=== PATIENT | male | born 1985 | race Caucasian/White ===

== ENCOUNTER 2024-09-02 08:07 | Emergency (ER) | payer OTHER ==
[~2024-09-02] VITALS: Ht 170.2 cm; Wt 86.2 kg
[2024-09-02 08:07] VITALS: BP 133/83; PULSE 62; RESP 16; TEMP 97.9; O2SAT 98
[2024-09-02 08:52] LABS: INFLUENZA VIRUS A ANTIGEN NEGATIVE (NEG); INFLUENZA VIRUS B ANTIGEN NEGATIVE (NEG)
[2024-09-02 09:02] VITALS: BP 122/84; PULSE 64; RESP 16; TEMP 97.9; O2SAT 98
[2024-09-02] MEDS ORDERED: TORADOL ONE (09:06)
[2024-09-02] MEDS: TORADOL IM STA (09:11)
== END 2024-09-02 09:21 | disposition home or self-care (01) ==
LOC: ER 08:07
DX: J06.9 Acute upper respiratory infection, unspecified (principal); B97.89 Other viral agents as the cause of diseases classified elsewhere; Z20.822 Contact with and (suspected) exposure to COVID-19
CPT/HCPCS: 99283; 87426; 96372; 87070; 87880; 87804 ×2; J1885